=== PATIENT | female | born 1970 | race Caucasian/White ===

== ENCOUNTER 2020-08-30 10:46 | Emergency (ER) | payer SELFPAY ==
[~2020-08-30] VITALS: Ht 167.6 cm; Wt 72.7 kg
[~2020-08-30 10:46] MED LIST: BUPRENORPHI0.3 MG/ML IV; CIPRO500 MG PO; DILAUDID4 MG PO; ELAVIL25 MG PO; LATUDA80 MG PO; LEVAQUIN750 MG PO; NEURONTIN 300300 MG PO; NEURONTIN600 MG PO; OXYCONTIN40 MG PO; PHENERGAN25 M1 PO; PHENERGAN25 MG RC; PHENOBARBITAL30 MG PO; RESTORIL15 MG PO; SOMA350 MG PO; UROCIT-K10 MEQ PO; VENTOLIN HFA18 GM INH; VITAMIN B-1000 MCG/M IM; XANAX2 MG PO
[2020-08-30 10:49] VITALS: BP 137/79; Ht 167.6 cm; Wt 72.7 kg
[2020-08-30] MEDS ORDERED: VISTARIL25 MG PO (11:14)
[2020-08-30] MEDS ORDERED: AMITRIPTYLINE100 MG PO (11:14)
[2020-08-30] MEDS ORDERED: AMOXICILLIN500 M1 PO (11:14)
== END 2020-08-30 11:24 | disposition home or self-care (01) ==
LOC: D.ER 10:46
DX: H66.92 Otitis media, unspecified, left ear (principal); K04.7 Periapical abscess without sinus; I10 Essential (primary) hypertension; Z72.0 Tobacco use

== ENCOUNTER 2020-12-15 10:27 | Emergency (ER) | payer MEDICARE ==
[~2020-12-15] VITALS: Ht 167.6 cm; Wt 77.3 kg
[~2020-12-15 10:27] MED LIST changes: +AMITRIPTYLINE100 MG PO; +AMOXICILLIN500 M1 PO; +VISTARIL25 MG PO
[2020-12-15 10:46] VITALS: Ht 167.6 cm; Wt 77.3 kg
[2020-12-15 13:41] VITALS: BP 173/94
[2020-12-15 15:22] LABS: BASOPHILS 1.3 % (0-2); EOSINOPHILS 0.4 % (0-7); HEMATOCRIT 38.3 % (36.0-48.0); HEMOGLOBIN 12.4 g/dL (12-16); LYMPHOCYTES 26.8 % (15-50); MCH 26.9 pg (26.0-34.0); MCHC 32.2 g/dL (31.0-37.0); MCV 83.4 fL (80.0-100.0); MEAN PLATELET VOLUME 9.1 fL (7.4-10.4); MONOCYTES 11.4 % (2-11); NEUTROPHILS 60.1 % (40-80); RBC 4.59 10x6/uL (4.00-5.40); RDW 18.3 % (11.5-14.5)
[2020-12-15 15:31] LABS: CALC OSMOLALITY 280 mosm/kg (275-300); CALCIUM 9.5 mg/dL (8.5-10.1); CARBON DIOXIDE 27.5 mmol/L (21.0-32.0); CHLORIDE - SERUM 102 mmol/L (98-107); CREATININE - SERUM 0.6 mg/dL (0.6-1.3); GLUCOSE 97 mg/dL (74-106); POTASSIUM - SERUM 3.6 mmol/L (3.5-5.1); SODIUM 141 mmol/L (136-145); UREA NITROGEN 13 mg/dL (7-18); eGFR NON AFRICAN AMERICAN > 90 mL/min (90-120)
[2020-12-15 15:33] LABS: PLATELET COUNT 267 10x3/uL (130-400)
[2020-12-15 15:40] LABS: ALBUMIN 3.9 g/dL (3.4-5.0); ALKALINE PHOSPHATASE 131 U/L (30-120); ALT (SGPT) 47 U/L (10-68); BILIRUBIN - TOTAL 0.54 mg/dL (0.2-1.3); MAGNESIUM - SERUM 1.9 mg/dL (1.8-2.4); PROTEIN - SERUM 8.1 g/dL (6.4-8.2)
[2020-12-15] MEDS ORDERED: CLEOCIN HCL300 MG PO (17:08)
== END 2020-12-15 17:32 | disposition home or self-care (01) ==
LOC: D.ER 10:27
PROVIDERS: Family Medicine
DX: K08.89 Other specified disorders of teeth and supporting structures (principal); K06.9 Disorder of gingiva and edentulous alveolar ridge, unspecified

== ENCOUNTER 2020-12-19 11:11 | Emergency (ER) | payer MEDICARE ==
[~2020-12-19] VITALS: Ht 167.6 cm; Wt 77.3 kg
[~2020-12-19 11:11] MED LIST changes: +CLEOCIN HCL300 MG PO
[2020-12-19 11:15] VITALS: BP 173/106; Ht 167.6 cm; Wt 77.3 kg
== END 2020-12-19 13:42 | disposition home or self-care (01) ==
LOC: D.ER 11:11
DX: R09.89 Other specified symptoms and signs involving the circulatory and respiratory systems (principal)